=== PATIENT | female | born 1960 | race Caucasian/White ===

== ENCOUNTER 2017-02-06 00:12 | Day surgery (SDC) | payer BC ==
[~2017-02-06] VITALS: Ht 162.6 cm; Wt 70.8 kg
[~2017-02-06 00:12] MED LIST: AMLO10TA2 PO; CARV12.5 PO; ENAL10TA PO; ENAL1TAB5 PO; HYDR50TA PO
[2017-02-06] MEDS ORDERED: SUBLIMAZE ONE (06:45)
[2017-02-06] MEDS ORDERED: NS 250ML 250 ML IV ONE (06:46)
[2017-02-06] MEDS ORDERED: XYLOCAINE ONE (06:46)
[2017-02-06 10:50] VITALS: BP 151/91
[2017-02-06] MEDS ORDERED: BENADRYL PO ONE ×2 (11:04→11:05)
[2017-02-06 12:35] VITALS: BP 151/99
[2017-02-06 12:50] VITALS: BP 155/104
[2017-02-06 13:05] VITALS: BP 160/99
--- NOTE | 2017-02-06 16:38 | PRP ---
PROCEDURE PERFORMED: 1. Left upper extremity venogram. 2. Fluoroscopic guidance. 3. Insertion of 5 Senegalese Power PICC line, double lumen catheter in the left basilic vein. COMPLICATIONS: None. ESTIMATED BLOOD LOSS: Minimal, less than 5 mL. INDICATIONS: Ms. Garay is a 57-year-old lady with a history of endocarditis and venous problems related to prior history of drug abuse. She is determined to require multiple medical procedures, including CT scans with contrast to evaluate aortic disease in addition to stress test for coronary artery disease. There was extreme difficulty finding venous access to administer the intravenous contrast agents; therefore, a PICC line was indicated to provide IV access for temporary venous utilization. The patient signed appropriate consent. The procedure was explained in detail. DESCRIPTION OF PROCEDURE: She presented to the chemical laboratory scientist in a fasting condition on 02/06/2017. Right upper extremity venogram was performed through a 22 gauge radial vein access showing medium to small size left upper extremity venous system. It was patent. Multiple valves noted and signs of prior nonocclusive inflammation. The left basilic vein was engaged successfully from the first stick, advancing the guidewire followed by advancing 25 cm of the 5 Senegalese dual lumen Power PICC line. The Power PICC line had was capped with appropriate caps and there was positive flush back. It was attached to the skin using the dermal attachment kit associated with the Power PICC line kit. There was good hemostasis. No complications reported. IMPRESSION: 1. Patent left upper extremity veins with signs of prior inflammation and medium sized vessels with multiple valves. The basilic vein is otherwise patent. 2. Successful insertion of 25 cm of the 5 Senegalese dual lumen Power PICC line in the left basilic vein using fluoroscopic guidance. RECOMMENDATIONS: 1. Okay to start using the Power PICC line. 2. Please discontinue once all the medical diagnostic procedures have been accomplished. 3. Follow appropriate sterile technique to manage the Power PICC line. Tre Goldberg MD,[facility] [place] TD: 02/06/2017 14:47 [facility]
== END 2017-02-06 13:10 | disposition home or self-care (01) | DRG 303 ==
LOC: SURG 00:12
PROVIDERS: ATTEND Internal Medicine
DX: I25.118 Atherosclerotic heart disease of native coronary artery with other forms of angina pectoris (principal); I35.0 Nonrheumatic aortic (valve) stenosis; I11.0 Hypertensive heart disease with heart failure; I50.9 Heart failure, unspecified; I65.21 Occlusion and stenosis of right carotid artery; I39 Endocarditis and heart valve disorders in diseases classified elsewhere; I65.1 Occlusion and stenosis of basilar artery; I70.0 Atherosclerosis of aorta; B18.2 Chronic viral hepatitis C; M19.90 Unspecified osteoarthritis, unspecified site; E66.3 Overweight; R06.02 Shortness of breath; Z68.26 Body mass index [BMI] 26.0-26.9, adult; Z96.641 Presence of right artificial hip joint; Z98.890 Other specified postprocedural states; Z81.1 Family history of alcohol abuse and dependence; Z87.891 Personal history of nicotine dependence; Z79.899 Other long term (current) drug therapy; F19.10 Other psychoactive substance abuse, uncomplicated
CPT/HCPCS: 36005; 36569; J1642; J3010; J7050; Q0163; Q9967

== ENCOUNTER → 2017-02-08 | Outpatient (CLI) | payer BC ==
--- NOTE | 2017-02-08 19:26 | DIREP ---
PROCEDURE:CTA ABDOMEN PELVIS W RUNOFF COMPARISON:None. INDICATIONS:R06.02 SOB, R07.89 CHEST PAIN, AORTIC STENOSIS TECHNIQUE:After obtaining the patient's consent, CTA images were created with non-ionic intravenous contrast material. Multiplanar reconstructions were evaluated. Post processing was performed to create MIPs. FINDINGS: SUPRARENAL AORTA:Normal. CELIAC:Patent. SMA:Patent. RIGHT RENAL:Patent. Incidentally triplicated. LEFT RENAL:Patent. INFRARENAL AORTA:Normal. RIGHT COMMON ILIAC:Patent. LEFT COMMON ILIAC:Patent. RIGHT EXTERNAL ILIAC:Patent. LEFT EXTERNAL ILIAC:Patent. RIGHT LOWER EXTREMITY COMMON FEMORAL:Patent SUPERFICIAL FEMORAL:Patent POPLITEAL:Patent ANTERIOR TIBIAL:Patent TIBIOPERONEAL TRUNK:Patent POSTERIOR TIBIAL:Patent PERONEAL:Patent LEFT LOWER EXTREMITY COMMON FEMORAL:Patent SUPERFICIAL FEMORAL:Patent POPLITEAL:Patent ANTERIOR TIBIAL:Patent TIBIOPERONEAL TRUNK:Patent POSTERIOR TIBIAL:Patent PERONEAL:Patent LIMITED CHEST:Normal. Small hiatal hernia. LIVER:Normal. BILIARY:Normal. PANCREAS:Normal. SPLEEN:Normal. KIDNEYS:Normal. ADRENALS:Normal. RETROPERITONEUM:Small nonspecific periaortic lymph nodes. BOWEL/MESENTERY:Normal. ABDOMINAL WALL:Normal. PELVIS:Normal. BONES:Right hip prosthesis. CONCLUSION:Normal abdominal CTA with three-vessel lower extremity runoff. Dictated by: Drew Person M.D. on 02/08/2017 at 07:21 PM
== END | disposition home or self-care (01) ==
LOC: RAD 02-05 09:03
PROVIDERS: ATTEND Internal Medicine
DX: I35.0 Nonrheumatic aortic (valve) stenosis (principal); R07.89 Other chest pain; R06.02 Shortness of breath; Z68.28 Body mass index [BMI] 28.0-28.9, adult
CPT/HCPCS: 73706; 74174; J1642; Q9967

== ENCOUNTER → 2017-02-13 | Outpatient (CLI) | payer BC ==
[~2017-02-13] VITALS: Ht 162.6 cm; Wt 70.8 kg
[~2017-02-13] MED LIST changes: +LEXISCAN IV ONE
--- NOTE | 2017-02-13 10:52 | DIREP ---
PROCEDURE:CAROTID ULTRASOUND COMPARISON:None. INDICATIONS:R07.89 CHEST PAIN, 424.1 AORTIC STENOSIS TECHNIQUE:Sonographic evaluation of carotid and vertebral arteries was performed together with grayscale, color-flow, and spectral analysis. FINDINGS: RIGHT CCA PROX:66.2 cm/s MID:74.5 cm/s DIST:66.2 cm/s RIGHT ICA: PROX:67.0 cm/s MID:54.7 cm/s DIST:54.7 cm/s RIGHT ECA:97.9 cm/s RIGHT ICA/CC:1.01 RIGHT VERTEBRAL:50.4 cm/s; Antegrade IMAGES: There is no significant plaque. LEFT CCA: PROX:86.4 cm/s MID:68.0 cm/s DIST:65.5 cm/s LEFT ICA: PROX:53.3 cm/s MID:57.7 cm/s DIST:68.4 LEFT ECA:77.5 cm/s LEFT ICA/CCA:0.84 LEFT VERTEBRAL:32.2 cm/s; Antegrade IMAGES:There is no significant plaque. CONCLUSION:No evidence of hemodynamically significant stenoses. Diameter Stenosis (%)ICA Peak Systolic Velocity (cm/s)ICA/CCA RatioNormal<125<2.0<50<125<[id number] to near occlusion>230>4J Ultrasound Med 2005; 24:2031-3510 ac Dictated by: HECTOR Physician on 02/13/2017 at 10:26 AM
--- NOTE | 2017-02-15 15:21 | STRESS ---
INDICATION: A 57-year-old lady with shortness of breath, chest pain, has history of rheumatic heart disease, abnormal EKG, fatigue and weakness and decreased functional capacity. This lady was brought into the stress lab in a fasting condition. Signed appropriate consent. Baseline blood pressure was 120/80, heart rate 79. EKG showed sinus rhythm with right bundle-branch block. The patient was injected 0.4 mg regadenoson followed by the stress dose of technetium sestamibi, 1 minute post infusion blood pressure was 123/76, heart rate of 98; 5 minute post infusion blood pressure was 130/80, heart rate of 88. There was no ST-T change ischemia noted. The patient reported minimal shortness of breath. No arrhythmia seen. Myocardial infusion study was performed using technetium sestamibi for the same day rest stress protocol showing the following: Study quality was good. Prone position was available, which corrected for attenuation artifacts. LV cavity was normal. No visible transient ischemic dilatation. Myocardial perfusion imaging study using SPECT modality showed a small area of anteroseptal perfusion defect small in size and reversible was still present during prone position. No other perfusion defects noted. Gated function study showed inferoseptal hypokinesia, EF of 54%, stroke volume 19 mL with end diastolic volume 35 mL. IMPRESSION: Nondiagnostic stress portion of Lexiscan. No electrocardiogram change ischemia. No arrhythmia. Normal hemodynamic response. Myocardial perfusion imaging study was abnormal with small anteroseptal defect and inferoseptal hypokinesia. Overall the ejection fraction is preserved at 54%. This study qualifies for low to moderate risk for obstructive coronary artery disease. Clinical correlation is recommended especially with the patient's risk profile. Tre Goldberg MD,[facility]/[place] TD: 02/15/2017 10:36 [place]
== END | disposition home or self-care (01) ==
LOC: RAD 10:06
PROVIDERS: ATTEND Internal Medicine
DX: I35.0 Nonrheumatic aortic (valve) stenosis (principal); R06.02 Shortness of breath; Z68.28 Body mass index [BMI] 28.0-28.9, adult
CPT/HCPCS: 78452; 93017; 93307; 93880; A9500; J2785

== ENCOUNTER 2017-03-14 10:47 | Inpatient (IN) | payer BC ==
[~2017-03-14] VITALS: Ht 162.6 cm; Wt 79.5 kg
[~2017-03-14 10:47] MED LIST changes: -LEXISCAN IV ONE
--- NOTE | 2017-03-14 11:10 | NUR ---
Pt on unit Pt arrived on unit via wheelchair. Oriented pt to room. Provided pt with fluids and snacks. Call light within reach.
--- NOTE | 2017-03-14 11:45 | NUR ---
IV IV attempted by this nurse x2. No successful stick.
[2017-03-14 12:30] VITALS: BP 132/93
[2017-03-14] MEDS ORDERED: LASIX PO STA (12:44)
[2017-03-14] MEDS ORDERED: NS 1000ML 1,000 ML IV ONE (13:00)
--- NOTE | 2017-03-14 13:07 | NUR ---
Status Pt resting in bed. Equal rise and fall of the chest noted. Pt denies shortness of breath and pain. No s/s of distress noted.
--- NOTE | 2017-03-14 13:11 | PCM.HP ---
CRISTHIAN GREENBERG DISPATCHER RELAY 03/14/17 1311: History of Present Illness Reason for Visit: (1) Congestive heart failure with right heart failure ICD Code: I50.9 - Heart failure, unspecified SNOMED: [id number] Was this Problem Present on Ad: Yes-DX present @time ofIP Hx of Present Illness C: Patient seen by Dr. Bro this morning for shortness of breath and headache. She was seen in the emergency room in [place] last week, transferred to [facility] for drooping of right side of face, "black eye" on right, and left ankle swelling. Echo done at that time - see records. Today she presents, with continued edema to lower extremities, left greater than right , but 2+. She complains of being short of breath with "tightness", feeling " fat as a whale" and headache. H: Patient has remote history of being a drug user and smoker, but she had quit this behavior some years ago. She is a "hard stick" as far as IV access and has had at least two PICC lines in the past. She is employed at [employer], doing lifting and moving of product. A: Patient is alert, oriented, pleasant. She was brought to Room 311 by staff , where initial contact was made. Slight drooping to left face is noted (she reports that it is significantly less than previous), with very slight impairment of speech. Lungs have faint rhonchi but with good air entry to auscultation posterior and anterior mtz. Heart sounds are present with regular rhythm, 2/6 systolic murmur and ejection click. Peripheral pulses present. Extremities have symmetric very slight edema. BMI 30. Travel History EBOLA RISK:Travel to/contact w: No Is pt experiencing any Ebola s: No Review of Systems Respiratory: Shortness of breath, SOB with excertion Cardiovascular: Orthopnea Allergies: Coded Allergies: No Known Allergies (Unverified , 02/05/17) Scheduled Amlodipine Besylate (Amlodipine Besylate), 1 TAB PO DAILY, (Reported) Carvedilol 12.5MG (Coreg 12.MG), 1 TAB PO BID, (Reported) Enalapril/Hydrochlorothiazide (Enalapril-Hctz 10-25 Mg Tablet), 1 TAB PO DAILY, (Reported) Hydroxyzine Hcl (Hydroxyzine Hcl), 1 TAB PO TID, (Reported) VTE VTE Risk Total Score: 4 VTE Risk Score VTE Risk: Score 0-1 = Low Risk (Aggressive mobilization; early ambulation; no VTE prophylaxis required) Score 2: Moderate Risk (Intermittent/Pneumatic Compression Device OR Lovenox/Heparin/Coumadin) Score 3-4: High Risk (Intermittent/Pneumatic Compression Device AND Lovenox/Heparin/Coumadin) Score > or =5: Highest Risk (Intermittent/Pneumatic Compression Device AND Lovenox/Heparin/Coumadin) VTE VTE Present on Admission: No Currently receiving anticoagul: No VTE Risk Total Score: 4 Exam Vital Signs Vital Signs Date Time Temp Pulse Resp B/P (MAP) Pulse Ox O2 Delivery O2 Flow Rate FiO2 03/14/17 12:34 Room Air 03/14/17 12:30 98.8 99 20 132/93 (106) 97 Assessment/Plan Assessment/Plan Patient History: Diabetes mellitus MATERNAL GRANDMOTHER, FH: colon cancer G8 SISTER No known health problems 32 MOTHER G8 SISTER 19 CHILD 19 CHILD 19 CHILD Unknown 33 FATHER, , Age:50's - 60 No Family History of: Alzheimer's disease Asthma Cerebrovascular disorder Chronic obstructive pulmonary disease Congestive heart failure Diabetes insipidus Hypertension Parkinson's disease DOMINGO REYNOLDS MD 03/16/17 0942: Review of Systems Allergies: Coded Allergies: No Known Allergies (Unverified , 02/05/17) Scheduled Amlodipine Besylate (Amlodipine Besylate), 1 TAB PO DAILY, (Reported) Carvedilol 12.5MG (Coreg 12.MG), 1 TAB PO BID, (Reported) Enalapril/Hydrochlorothiazide (Enalapril-Hctz 10-25 Mg Tablet), 1 TAB PO DAILY, (Reported) Hydroxyzine Hcl (Hydroxyzine Hcl), 1 TAB PO TID, (Reported) Assessment/Plan Assessment/Plan Assessment/Plan -Acute decompensation of right heart failure - severe tricuspid regurgitation - history of endocarditis - recent TIA - abnormal stress test with active angina symptoms plan, Diuretic therapy, arrange for Accurately evaluate cardiac output and managed right heart failure. Coronary angiography is recommended for abnormal stress test and angina in the presence of risk factors Problems: Patient History: Diabetes mellitus MATERNAL GRANDMOTHER, FH: colon cancer G8 SISTER No known health problems 32 MOTHER G8 SISTER 19 CHILD 19 CHILD 19 CHILD Unknown 33 FATHER, , Age:50's - 60 No Family History of: Alzheimer's disease Asthma Cerebrovascular disorder Chronic obstructive pulmonary disease Congestive heart failure Diabetes insipidus Hypertension Parkinson's disease CRISTHIAN GREENBERG NP Mar 14, 2017 13:11 DOMINGO REYNOLDS MD Mar 16, 2017 09:42
--- NOTE | 2017-03-14 13:53 | DIREP ---
PROCEDURE:CHEST 2 VIEWS COMPARISON:[facility], CR, XRAY CHEST SINGLE VW, 03/06/2017, 03:30 PM. INDICATIONS:Shortness of breath FINDINGS: LUNGS/PLEURA:No significant pulmonary parenchymal abnormalities. No effusions. VASCULATURE:Normal. Unremarkable pulmonary vasculature. CARDIAC:Mild cardiomegaly. MEDIASTINUM:Normal. No visible mass or adenopathy. BONES:Normal. No fracture or visible bony lesion. OTHER:Negative. CONCLUSION:Mild cardiomegaly with no evidence of pulmonary edema, infiltrate, or pleural effusion. No significant change from the prior exam. Dictated by: Marty Way M.D. on 03/14/2017 at 01:51 PM
[2017-03-14 14:22] LABS: BASOPHIL % 0.9 % (0.0-0.2); EOSINOPHIL # 0.2 10^3/uL (0.0-0.2); EOSINOPHIL % 4.7 % (0.0-5.0); HEMOGLOBIN 14.4 g/dL (12.0-15.0); LYMPHOCYTES # 1.8 10^3/uL (1.0-4.8); LYMPHOCYTES % 39.2 % (24.0-44.0); MEAN CELL HGB 31.4 pg (26-34); MEAN CELL HGB CONCENTRATION 34.5 g/dL (33-37); MEAN CORP VOLUME 90.8 fL (78-100); MONOCYTES # 0.4 10^3/uL (0.3-0.8); MONOCYTES % 9.4 % (5.0-12.0); NEUTROPHILS % 45.6 % (41.0-85.0); RED CELL DISTRIBUTION WIDTH 13.2 % (11.5-14.5); WHITE BLOOD CELL 4.5 10^3/uL (4.5-11.0)
[2017-03-14 14:27] LABS: CARBON DIOXIDE 23.5 mmol/L (20.0-32)
--- NOTE | 2017-03-14 18:41 | NUR ---
report report received care assumed ,
[2017-03-14 19:20] VITALS: BP 144/88
[2017-03-15 00:11] VITALS: BP 136/87
--- NOTE | 2017-03-15 00:12 | NUR ---
npo fluids and snacks removed from bedside table, education completed from npo status, will continue to monitor
[2017-03-15 05:40] LABS: BASOPHIL # 0.1 10^3/uL (0.0-0.1); BASOPHIL % 1.4 % (0.0-0.2); EOSINOPHIL # 0.2 10^3/uL (0.0-0.2); EOSINOPHIL % 3.7 % (0.0-5.0); HEMOGLOBIN 14.6 g/dL (12.0-15.0); LYMPHOCYTES # 2.2 10^3/uL (1.0-4.8); LYMPHOCYTES % 44.5 % (24.0-44.0); MEAN CELL HGB 31.3 pg (26-34); MEAN CELL HGB CONCENTRATION 34.4 g/dL (33-37); MEAN CORP VOLUME 91.2 fL (78-100); MEAN PLATELET VOLUME 9.1 fL (7.8-11.0); MONOCYTES # 0.6 10^3/uL (0.3-0.8); MONOCYTES % 11.5 % (5.0-12.0); NEUTROPHIL # 1.9 10^3/uL (1.8-7.7); NEUTROPHILS % 38.9 % (41.0-85.0); RED CELL DISTRIBUTION WIDTH 13.4 % (11.5-14.5); WHITE BLOOD CELL 4.9 10^3/uL (4.5-11.0)
[2017-03-15 05:58] LABS: CALCIUM 9.3 mg/dL (8.4-10.5); CARBON DIOXIDE 21.2 mmol/L (20.0-32)
[2017-03-15] MEDS ORDERED: HEPARIN ONE (06:30)
[2017-03-15] MEDS ORDERED: VERSED ONE ×2 (06:31→11:38)
[2017-03-15] MEDS ORDERED: NITROGLYCERIN 25MG/D5W 250ML 250 ML IV ONE (06:31)
[2017-03-15] MEDS ORDERED: XYLOCAINE ONE (06:31)
[2017-03-15] MEDS ORDERED: SUBLIMAZE ONE ×2 (06:31→12:11)
[2017-03-15 07:17] VITALS: BP 133/89
--- NOTE | 2017-03-15 07:21 | NUR ---
report report given care relinquished
[2017-03-15 08:42] VITALS: BP 136/98
[2017-03-15] MEDS ORDERED: NS 1000ML 1,000 ML ONE (10:04)
--- NOTE | 2017-03-15 10:42 | NUR ---
DISCHARGE PLANNING: SS VISITED WITH PT REGARDING DISCHARGE PLANNING NEEDS. PT LIVES HOME ALONE AND IS VERY INDEPENDENT, AND WORKS DAILY. PT DOES NOT USE ANY DME, AND DENIED NEEDING ADDITIONAL RESOURCES AT THIS TIME. PT SAFETY HANDOUT ADDRESSED, NO QUESTIONS ASKED, UNDERSTANDING VERBALIZED. SS TO CONTINUE TO FOLLOW AND MONITOR DISCHARGE PLANNING NEEDS.
--- NOTE | 2017-03-15 11:25 | NUR ---
Off unit Patient transferred off unit via stretcher to mason tender restoration labor.
--- NOTE | 2017-03-15 12:49 | NUR ---
Arrival Patient arrived back on unit via stretcher. Special vitals initiated. Telemetry #12 applied. Report received from Brian Sanabria RN. Right femoral sheath in place to right groin. Site soft, no bleeding or swelling noted. No s/s of a hematoma. Offered patient fluids and snacks. Will continue to monitor. Call light within reach.
--- NOTE | 2017-03-15 14:16 | NUR ---
Bedpan Assisted patient on bedpan. No bleeding, swelling, or s/s of hematoma to groin noted.
--- NOTE | 2017-03-15 14:21 | NUR ---
Urine 300 cc of light corie urine noted
[2017-03-15 15:45] VITALS: BP 128/84
[2017-03-15] MEDS: TYLENOL PO PRN ×2 (16:20→16:28)
[2017-03-15] MEDS ORDERED: TYLENOL PO ONE (16:23)
--- NOTE | 2017-03-15 17:44 | NUR ---
Dr. Goldberg Notified Dr. Goldberg of patient's pain to right leg. New order received. No s/s of bleeding, swelling, heat or hematoma noted. Will continue to monitor. Educated patient and family on the importance of lying flat to prevent complications with sheath, patient and family verbalized understanding.
[2017-03-15] MEDS: NORCO 10-325 TABLET PO PRN (18:03)
--- NOTE | 2017-03-15 18:30 | NUR ---
report recieved report took over care
--- NOTE | 2017-03-15 18:44 | [facility] ---
DATE OF SERVICE: 03/15/2017 PROCEDURES PERFORMED: 1. Left heart catheterization via right common femoral artery. 2. Right heart catheterization via right common femoral vein. 3. Selective coronary angiography, left and right. 4. Left ventricular end diastolic pressure measurement. 5. Left ventriculography 6. Right femoral angiography. COMPLICATIONS: None. BLOOD LOSS: Around 20-25 mL, minimal. INDICATIONS: 1. Abnormal stress test performed on 02/13/2017 showing anteroseptal defect and inferobasal hypokinesia. 2. Signs and symptoms of clinical right heart failure as well as an echocardiographic finding of severely dilated RV and hypokinetic ventricle. 3. Severe tricuspid regurgitation. 4. Multiple risk factors for coronary artery disease. 5. History of prior tricuspid endocarditis treated conservatively. HISTORY OF PRESENT ILLNESS: The patient is a 57-year-old lady with history of previous IV drug abuse. She also has history of smoking and hypertension, has been complaining of chest pain, shortness of breath, edema and swelling. Clinical evidence of right heart failure as well as echocardiographic findings of right heart failure were apparent in this hospitalization. Therefore, the need for right heart catheterization to accurately calculate the cardiac output as well as a left heart catheterization to follow up on recently performed stress test to manage angina. The patient signed proper consent, was brought into the [facility] in a fasting condition for left and right heart catheterization and hemodynamic study. DESCRIPTION OF PROCEDURE: The right groin area was prepped and draped and sterilized, 1% lidocaine was used for local analgesia. Micropuncture technique was utilized to gain access into the right common femoral vein and artery. A 6-Lao sheath was inserted in each of those vascular structures without difficulty under fluoroscopic guidance. The [place]-Efrain catheter was then advanced to the right heart chambers and pulmonary artery wedge pressure saturations were obtained through blood samples and pressures were measured in addition to performing thermodilution cardiac output method in the pulmonary artery. The right femoral venous sheath was sutured to the skin and utilized for IV access as the patient has very difficult stick due to previously scarred veins. A 6-Lao JL4 and 6-Lao JR4 were the guide of choice utilized to engage left and right coronary arteries via the right common femoral artery access sheath and the pigtail catheter was then advanced over the guidewire into the LV cavity for LVEDP measurement and power injection LV gram in the JOHNSON projection. The 6-Lao arterial sheath was removed and 6-Lao Angio-Seal was deployed successfully at the right common femoral artery access site for hemostasis. The patient tolerated the procedure well and left the Demurrage Clerk in stable condition without complications. RIGHT HEART CATHETERIZATION FINDINGS: 1. Pulmonary capillary wedge pressure was around 5-8 mmHg. 2. Pulmonary artery pressure was 27/9, mean of 17 mmHg, normal. 3. RV pressure was 30/6 mmHg. 4. RA pressure was around 12-15 mmHg. 5. IVC pressure was 14 mmHg. 6. Pulmonary capillary wedge pressure saturation was 89%. 7. Pulmonary artery mean saturation was 65%. 8. RV pressure was 62%. 9. RA pressure was 62%. 10. Aortic saturation was 92% on room air. 11. Cardiac output calculated by thermodilution was 3.9 liters per minute, cardiac index was 4.17 liter per minute per meter square. 12. Cardiac output by Suzanne criteria was 2.4 liters per minute and a cardiac index 2.5 liters per minute per meter square. LEFT HEART CATHETERIZATION HEMODYNAMICS: 1. Showed an opening pressure of 161/97, mean of 124 mmHg. 2. LVEDP was around 10 mmHg. 3. LV systolic function showed an EF around 50-55% with apical hypokinesia. 4. +2 MR was noted. 5. A gradient of 3 mmHg across the aortic valve was noted. 6. Ascending aorta was normal in size without apparent disease. ANGIOGRAPHIC FINDINGS: 1. Left main is normal size vessel, free of disease, normal in diameter. 2. LAD was normal in size, free of disease. 3. Diagonal branches were small, tortuous vessels without significant disease. 4. Circumflex artery starts as a large nondominant vessel, tapers down quickly to a small nondominant vessel, no obstructive lesion noted. Large obtuse marginal branch was seen without obstructive disease. 5. The right coronary artery is a normal size, tortuous, dominant vessel, free of disease with multiple small acute marginal branches, terminates distally at small, tortuous, dominant PDA and PLV branches. IMPRESSION: 1. Normal pulmonary capillary wedge pressure. 2. Normal pulmonary artery pressure. 3. Normal RV pressure. 4. Cardiac output was depressed measuring an average of 3.25 liter per minute with an average cardiac index of 3.6 liter per minute per meter square. 5. Normal pulmonary capillary wedge pressure. 6. Preserved LV systolic function with EF around 50%. 7. No angiographic evidence of any obstructive coronary artery disease. 8. Normal dominant RCA. 9. Normal left main. 10. Normal LAD. 11. No iliofemoral disease on the right side. 12. The procedure was well tolerated. RECOMMENDATIONS: 1. Groin care. 2. Okay to utilize the 6-Lao sheath in the right common femoral vein for venous access. 3. Management of biventricular failure, especially RV failure. 4. Optimize medical management for primary prevention of coronary artery disease. 5. Consider management of severe tricuspid regurgitation with RV failure. Tre Goldberg MD DR: ALFONSO/vitaliy JOB# [id number]
[2017-03-15 19:10] VITALS: BP 142/105
--- NOTE | 2017-03-15 19:10 | NUR ---
into assess patient, patietn states no pain at this time, patients heart cath site checked no swelling or bleeding no ss of hematoma will cont to monitor
--- NOTE | 2017-03-15 20:15 | NUR ---
bedpan into assess patient onto bed heredia patient rolls well with little to no discomfort will cont to monitor
[2017-03-15] MEDS: COREG PO SCH (20:36)
[2017-03-15] MEDS: ATARAX PO SCH (21:00)
--- NOTE | 2017-03-15 22:50 | NUR ---
into assess heart cath site, no ss of bleeding, no hardness will cont to monitor
[2017-03-16] MEDS: NORCO 10-325 TABLET PO PRN ×2 (01:44→07:54)
[2017-03-16 03:20] VITALS: BP 101/70
--- NOTE | 2017-03-16 06:46 | NUR ---
reported off to oncoming shift relinquished care
[2017-03-16 08:02] VITALS: BP 121/82
[2017-03-16] MEDS ORDERED: PEPCID ONE (08:54)
[2017-03-16] MEDS: ATARAX PO SCH ×3 (09:00→21:35)
[2017-03-16] MEDS: COREG PO SCH ×2 (09:00→21:35)
[2017-03-16] MEDS: HYDROCHLOROTHIAZIDE PO SCH (09:01)
[2017-03-16] MEDS: NORVASC PO SCH (09:01)
[2017-03-16] MEDS: ZESTRIL PO SCH (09:01)
--- NOTE | 2017-03-16 09:03 | NUR ---
MADE ROUND ON PT REGARDING POST OP CARE OF HEART CATH. CATH SITE ASSESSED. VENOUS SHEATH STILL IN PLACE AT THIS TIME. NO SWELLING OR BLEEDING NOTED. PT STATES THAT SHE HAS SORENESS TO RIGHT LEG. PEDAL AND POPITEAL PULSES +2. PT DENIES ANY FURTHER NEEDS OR QUESTIONS AT THIS TIME.
--- NOTE | 2017-03-16 10:27 | PRM.DC ---
Discharge Summary Date of Arrival on Unit: Mar 14, 2017 Reason for Visit: Congestive heart failure and shortness of breath Additional Comments Patient had developed increasing edema to face, feet. PROCEDURES PERFORMED: 1. Left heart catheterization via right common femoral artery. 2. Right heart catheterization via right common femoral vein. 3. Selective coronary angiography, left and right. 4. Left ventricular end diastolic pressure measurement. 5. Left ventriculography 6. Right femoral angiography. INDICATIONS: 1. Abnormal stress test performed on 02/13/2017a. 2. Signs and symptoms of clinical right heart failure as well as an echocardiographic finding of severely dilated RV and hypokinetic ventricle. 3. Severe tricuspid regurgitation. 4. Multiple risk factors for coronary artery disease. 5. History of prior tricuspid endocarditis treated conservatively. HISTORY OF PRESENT ILLNESS: The patient is a 57-year-old lady with history of previous IV drug abuse. She also has history of smoking and hypertension, has been complaining of chest pain, shortness of breath, edema and swelling. Clinical evidence of right heart failure as well as echocardiographic findings of right heart failure were apparent in this hospitalization. Patient History: Diabetes mellitus MATERNAL GRANDMOTHER, FH: colon cancer G8 SISTER No known health problems 32 MOTHER G8 SISTER 19 CHILD 19 CHILD 19 CHILD Unknown 33 FATHER, , Age:50's - 60 No Family History of: Alzheimer's disease Asthma Cerebrovascular disorder Chronic obstructive pulmonary disease Congestive heart failure Diabetes insipidus Hypertension Parkinson's disease History Present Illness: (1) Congestive heart failure with right heart failure SEVERITY: MODERATE PERSISTENT COMPLICATION TYPE: W/ ACUTE EXACERBATION Status: Chronic ICD Code: I50.9 - Heart failure, unspecified SNOMED: [id number] General: Alert, Oriented X3 Lungs: Clear to auscultation Neuro: Normal speech, Normal tone Psych/Mental Status: Mental status NL Scheduled Amlodipine Besylate (Amlodipine Besylate), 1 TAB PO DAILY, (Reported) Carvedilol 12.5MG (Coreg 12.MG), 1 TAB PO BID, (Reported) Enalapril/Hydrochlorothiazide (Enalapril-Hctz 10-25 Mg Tablet), 1 TAB PO DAILY, (Reported) Hydroxyzine Hcl (Hydroxyzine Hcl), 1 TAB PO TID, (Reported) Sepsis Evaluation @ Discharge No sign or symptoms of sepsis at time of discharge. Course Blood Pressure Systolic: 121 Blood Pressure Diastolic: 82 Blood Pressure Mean: 95 Plan Discharge Disposition: Stable Plan FOLLOW UP IN OFFICE IN TWO WEEKS. WEIGH DAILY AND CALL IF GAIN OF OVER 5 POUNDS IN THREE DAYS, OR IF SHORTNESS OF BREATH WITH WEIGHT GAIN. CONTROL FLUID INTAKE - AIM FOR <2 LITER/DAY INTAKE. TAKE MEDICATIONS PRESCRIBED. CRISTHIAN GREENBERG NP Mar 16, 2017 10:27
[2017-03-16 11:45] VITALS: BP 106/74
--- NOTE | 2017-03-16 13:58 | NUR ---
Sheath removed Femoral sheath removed. Held manual pressure for 10 minutes. 4x4 gauze and tegaderm applied to site. Dressing C/D/I. Site soft, no s/s of hematoma. Educated patient on the importance to stay lying flat for 15 minutes, then we'd slowly start sitting up, patient verbalized understanding. Will continue to monitor. Call light within reach.
--- NOTE | 2017-03-16 14:23 | NUR ---
Report Report given to BECKA Wyatt. Relinquished care of patient
[2017-03-16 15:56] VITALS: BP 111/76
--- NOTE | 2017-03-16 18:33 | NUR ---
REPORT REPORT RECEIVED ASSUMED CARE OF PT
[2017-03-16 19:53] VITALS: BP 117/89
[2017-03-17 00:21] VITALS: BP 110/78
[2017-03-17 04:03] VITALS: BP 101/75
--- NOTE | 2017-03-17 07:20 | NUR ---
Status Patient resting with eyes closed in supine position. Respirations even and nonlabored. No s/s of distress noted. Will continue to monitor. Call light within reach.
[2017-03-17] MEDS: ATARAX PO SCH (09:00)
[2017-03-17] MEDS: NORVASC PO SCH (09:00)
[2017-03-17 09:26] VITALS: BP 109/70
[2017-03-17] MEDS: HYDROCHLOROTHIAZIDE PO SCH (09:29)
[2017-03-17] MEDS: ZESTRIL PO SCH (09:30)
[2017-03-17] MEDS: COREG PO SCH (09:30)
[2017-03-17 11:00] VITALS: BP 109/70
--- NOTE | 2017-03-17 11:00 | NUR ---
Discharge Discharge instructions given to patient. Educated patient on importance of follow up with Dr. Goldberg, patient verbalized understanding. Educated patient on new medications, patient verbalized understanding. Educated patient on reportable s/s related to heart cath site, patient verbalized understanding. Discontinued IV, catheter tip intact. No bleeding, swelling, redness, heat or pain noted. Covered with cotton ball and bandaid. Patient ambulated off unit with staff to private vehicle. No s/s of distress noted.
--- NOTE | 2017-03-23 01:01 | PRM.ACF1 ---
Admission Criteria Forms HEART FAILURE: COMMON COMPLICATIONS Clinical Indications for Inpatient Care (Place 'X' for any and all applicable criteria): Ongoing inpatient care may be indicated for heart failure with 1 or more of the following (1)(2)(3)(4)(5)(6)(7)(8): [ ]I. New-onset heart failure [ ]II. Acute cardiac ischemia causing or associated with failure [ ]III. Ongoing need for care for primary condition requiring frequent therapy adjustments because of changes in cardiac function (eg, drug dosage changes for drugs that are renally metabolized) [X]IV. Complications of heart failure, including 1 or more of the following: [ ]a) Hemodynamic instability [ ]b) Pericardial effusion [ ]c) Symptomatic pleural effusion [ ]d) Hypoxemia [ ]e) Tachypnea [X]f) Dyspnea [ ]g) Syncope [ ]h) Altered mental status [ ]i) Acute renal insufficiency that is severe (reduction of more than 50% in estimated glomerular filtration rate from baseline) or progressive reduction of more than 25% in estimated glomerular filtration rate from baseline, with creatinine continuing to rise) [ ]j) Debilitating anasarca (eg tissue breakdown with infection, inability to void due to edema) (E) [ ]k) Clinically significant metabolic abnormalities due to heart failure (eg, new-onset metabolic acidosis) Extended stay may be needed until ALL of the following are present (1)(3)(18)(41 )(55) [ ]a) Hemodynamic stability [ ]b) Stable and effective diuretic regimen established (or patient on stable dialysis regimen if in chronic renal failure) [ ]c) Volume status acceptable on oral medication [ ]d) Breathing comfortably at rest [ ]e) Saturation of arterial oxygen greater than 90% or at acceptable baseline [ ]f) Pulmonary edema absent or improved [ ]g) Peripheral or sacral edema absent or improved [ ]h) Renal function stable and manageable at a lower level of care [ ]i) Complications (eg, pleural effusion) resolved or manageable at a lower level of care [ ]g) Patient or caregiver has received written discharge instructions or educational material addressing activity level, diet, discharge medications, follow-up appointment, weight monitoring, and what to do if symptoms worsen.(25)(26) The original [facility] [employer] content created by [facility] [employer] has been revised. The portions of the content which have been revised are identified through the use of italic text, and [facility] has neither reviewed nor approved the modified material.All other unmodified content is copyright [facility]. Please see references footnoted in the original [facility] edition 2015 Is [facility]/Fe's added/comple: YES HERMAN GORDILLO CDS Mar 23, 2017 01:01
== END 2017-03-17 13:26 | disposition home or self-care (01) | DRG 287 ==
LOC: MS 10:47
PROVIDERS: ADMIT Internal Medicine; ATTEND Internal Medicine
PROC: 4A023N8 Measurement of Cardiac Sampling and Pressure, Bilateral, Percutaneous Approach (ICD-10-PCS; principal; 2017-03-15)
PROC: B2111ZZ Fluoroscopy of Multiple Coronary Arteries using Low Osmolar Contrast (ICD-10-PCS; 2017-03-15)
PROC: B2151ZZ Fluoroscopy of Left Heart using Low Osmolar Contrast (ICD-10-PCS; 2017-03-15)
PROC: B41F1ZZ Fluoroscopy of Right Lower Extremity Arteries using Low Osmolar Contrast (ICD-10-PCS; 2017-03-15)
DX: I11.0 Hypertensive heart disease with heart failure (principal); I07.1 Rheumatic tricuspid insufficiency; I20.9 Angina pectoris, unspecified; I50.9 Heart failure, unspecified; R94.39 Abnormal result of other cardiovascular function study; Z87.891 Personal history of nicotine dependence; Z86.73 Personal history of transient ischemic attack (TIA), and cerebral infarction without residual deficits; Z83.3 Family history of diabetes mellitus; Z80.0 Family history of malignant neoplasm of digestive organs
CPT/HCPCS: 36415; 71020; 80048; 80053; 82810; 82948; 85025; 93460; 99152; 99153; C1760; C1769; C1894; J1644; J2250; J3010; J3490; J7030; Q9967

== ENCOUNTER 2017-04-04 11:25 | Emergency (ER) | payer BC ==
[~2017-04-04] VITALS: Ht 162.6 cm; Wt 81.6 kg
--- NOTE | 2017-04-04 11:47 | ER.PDOC ---
General Chief Complaint: General Complaint Stated Complaint: RETAINING FLUID,SOB TRAVEL OUT OF US: No Time seen by MD: 11:46 Source: patient Exam Limitations: no limitations History of Present Illness Initial Comments Retaining fluid for past few days. Severity: moderate Associated Symptoms: shortness of breath Allergies: Coded Allergies: No Known Allergies (Unverified , 02/05/17) Home Meds Reported Medications Carvedilol 12.5MG (COREG 12.MG) 12.5 Mg Tablet, 1 TAB PO BID, #180 TAB 1 Refill 02/05/17 Hydroxyzine Hcl (HYDROXYZINE HCL) 50 Mg Tablet, 1 TAB PO TID, #90 TAB 2 Refills 02/05/17 Past Medical History Medical History: CVA/TIA/stroke, cardiac problems, congestive heart failure, hypertension Surgical History: , hip LMP (females 10-50): postmenopause Social History Smoking: quit greater than 1 year Alcohol Use: none Drug Use: Amphetamines Review of Systems Constitutional: no symptoms reported Respiratory: see HPI Cardiovascular: see HPI Gastrointestinal: no symptoms reported Genitourinary: no symptoms reported Musculoskeletal: no symptoms reported Skin: no symptoms reported All Other Systems: Reviewed and Negative Physical Exam General Appearance: No Apparent Distress, WD/WN Neck: Non-Tender, Full Range of Motion, Supple, Normal Inspection Respiratory: chest non-tender, lungs clear, normal breath sounds, no respiratory distress CVS: reg rate & rhythm, no murmur, no gallop, pulses nml, nml capillary refill Gastrointestinal: Normal Bowel Sounds, No Organomegaly, No Pulsatile Mass, Non Tender Extremities: Normal Range of Motion, Non-Tender, Normal Inspection, No Pedal Edema Neurologic/Psychiatric: doctor of dental medicine II-XII NML as Tested, No Motor/Sensory Deficits Results/Orders Results/Orders Laboratory Tests Test 04/04/17 12:00 White Blood Count 3.2 10^3/uL (4.5-11.0) Red Blood Count 4.26 10^6/uL (4.00-5.20) Hemoglobin 13.3 g/dL (12.0-15.0) Hematocrit 38.7 % (36.0-46.0) Mean Corpuscular Volume 90.8 fL (78-100) Mean Corpuscular Hemoglobin 31.2 pg (26-34) Mean Corpuscular Hemoglobin Concent 34.4 g/dL (33-37) Red Cell Distribution Width 13.6 % (11.5-14.5) Platelet Count 141 10^3/uL (150-400) Mean Platelet Volume 9.3 fL (7.8-11.0) Neutrophils (%) (Auto) 42.4 % (41.0-85.0) Lymphocytes (%) (Auto) 36.2 % (24.0-44.0) Monocytes (%) (Auto) 15.1 % (5.0-12.0) Neutrophils # (Auto) 1.4 10^3/uL (1.8-7.7) Lymphocytes # (Auto) 1.2 10^3/uL (1.0-4.8) Monocytes # (Auto) 0.5 10^3/uL (0.3-0.8) Absolute Immature Granulocyte (auto 0.01 10^3 u/L (0-2) Eosinophils % 3.8 % (0.0-5.0) Basophils % 2.2 % (0.0-0.2) Basophils # 0.1 10^3/uL (0.0-0.1) Eosinophil Count 0.1 10^3/uL (0.0-0.2) Prothrombin Time 11.5 SEC (9.8-11.9) Prothrombin Time INR (Non-Therap) 1.1 Activated Partial Thromboplast Time 26.6 SEC (24.67-30.72) Sodium Level 144 mmol/L (132-145) Potassium Level 3.6 mmol/L (3.6-5.2) Chloride Level 108.0 mmol/L (96-109) Carbon Dioxide Level 24.6 mmol/L (20.0-32) Anion Gap 15.0 Blood Urea Nitrogen 25 mg/dL (7-18) Creatinine 0.94 mg/dL (0.59-1.40) Estimated GFR () 74.3 (>/=60) BUN/Creatinine Ratio 26.0 Glucose Level 115 mg/dL (70-110) Calcium Level 8.8 mg/dL (8.4-10.5) Total Bilirubin 0.8 mg/dL (0.2-1.0) Aspartate Amino Transf (AST/SGOT) 70 U/L (0-35) Alanine Aminotransferase (ALT/SGPT) 69 U/L (12-78) Alkaline Phosphatase 145 U/L (50-136) Total Creatine Kinase 64 U/L (26-192) Creatine Kinase MB 0.7 ng/mL (0.5-3.6) Troponin I < 0.02 ng/mL (0.00-0.05) Pro-B-Type Natriuretic Peptide 618 pg/mL (0-125) Total Protein 7.6 g/dL (6.4-8.2) Albumin 3.4 g/dL (3.4-5.0) Globulin 4.2 Percent Immature Gran (Cell Imm) 0.30 % (0.00-0.50) Progress Progress Called Dr. Goldberg without response EKG/XRAY/CT/US EKG: NSR XRAY: chest (Normal) Departure Time of Disposition: 12:58 Disposition: 01 HOME, SELF-CARE Impression: Primary Impression: CHF (congestive heart failure) Qualified Codes: I50.9 - Heart failure, unspecified Condition: Stable Referrals: DOMINGO GOLDBERG MD (PCP) PRIMARY CARE PROVIDER Additional Instructions: Continue home medications F/U with your Dr. Goldberg in 2-3 days. Call for appointment. JAMES MOLINA MD Apr 04, 2017 11:47
[2017-04-04 12:06] LABS: BASOPHIL # 0.1 10^3/uL (0.0-0.1); BASOPHIL % 2.2 % (0.0-0.2); EOSINOPHIL # 0.1 10^3/uL (0.0-0.2); EOSINOPHIL % 3.8 % (0.0-5.0); HEMOGLOBIN 13.3 g/dL (12.0-15.0); LYMPHOCYTES # 1.2 10^3/uL (1.0-4.8); LYMPHOCYTES % 36.2 % (24.0-44.0); MEAN CELL HGB 31.2 pg (26-34); MEAN CELL HGB CONCENTRATION 34.4 g/dL (33-37); MEAN CORP VOLUME 90.8 fL (78-100); MEAN PLATELET VOLUME 9.3 fL (7.8-11.0); MONOCYTES # 0.5 10^3/uL (0.3-0.8); MONOCYTES % 15.1 % (5.0-12.0); NEUTROPHIL # 1.4 10^3/uL (1.8-7.7); NEUTROPHILS % 42.4 % (41.0-85.0); RED CELL DISTRIBUTION WIDTH 13.6 % (11.5-14.5); WHITE BLOOD CELL 3.2 10^3/uL (4.5-11.0)
--- NOTE | 2017-04-04 12:12 | DIREP ---
PROCEDURE:CHEST 1 VIEW COMPARISON:None. INDICATIONS:Chest pain. FINDINGS: LUNGS/PLEURA:No significant pulmonary parenchymal abnormalities. No effusions. VASCULATURE:Normal. Unremarkable pulmonary vasculature. CARDIAC:Normal. No cardiac silhouette abnormality or cardiomegaly. MEDIASTINUM:Normal. No visible mass or adenopathy. BONES:Normal. No fracture or visible bony lesion. OTHER:Negative. CONCLUSION:Normal chest. Dictated by: Jarrett Rose M.D. on 04/04/2017 at 12:09 PM
[2017-04-04 12:34] LABS: ALANINE AMINOTRANSFERASE 69 U/L (12-78); ALKALINE PHOSPHATASE 145 U/L (50-136); ASPARTATE AMINO TRANSFERASE 70 U/L (0-35); CALCIUM 8.8 mg/dL (8.4-10.5); CARBON DIOXIDE 24.6 mmol/L (20.0-32); GLUCOSE 115 mg/dL (70-110)
[2017-04-04] MEDS ORDERED: LASIX PO STA (13:01)
[2017-04-04] MEDS ORDERED: LASIX ONE (13:20)
[2017-04-04 13:34] VITALS: BP 148/82
== END 2017-04-04 13:28 | disposition home or self-care (01) ==
LOC: ER 11:25
DX: I11.0 Hypertensive heart disease with heart failure (principal); I50.9 Heart failure, unspecified; R06.02 Shortness of breath; F15.10 Other stimulant abuse, uncomplicated; Z86.73 Personal history of transient ischemic attack (TIA), and cerebral infarction without residual deficits; Z87.891 Personal history of nicotine dependence; Z79.899 Other long term (current) drug therapy
CPT/HCPCS: 36415; 71010; 80053; 82550; 82553; 83880; 84484; 85025; 85610; 93005; 99285

== ENCOUNTER → 2017-08-03 | Outpatient (CLI) | payer BC ==
--- NOTE | 2017-08-05 13:21 | DIREP ---
PROCEDURE:NM BONE SCAN 3 PHASE WHOLE BODY COMPARISON:[facility], CT, CT-ABDOMEN /PELVIS W/O CONTRAST, 01/20/2012, 07:11 AM. INDICATIONS:M25.511 CHRONIC PAIN POST REPLACEMENT TECHNIQUE:After obtaining the patient's consent, Technetium 99m MDP was injected intravenously. Dynamic flow and immediate blood pool images of the pelvis were obtained, along with whole body delayed static images. PHARMACEUTICAL:Technetium 99m MDP, 30.8 mCi FINDINGS: FLOW PHASE:Normal. BLOOD POOL PHASE:Normal. DELAYED IMAGES:Photopenia in the vicinity of the right femoral head and neck, due to hip prosthesis. Mildly increased activity in the vicinity of the medial trochanter of the right femur and at the tip of a femoral prosthesis. OTHER:Negative. CONCLUSION:There is mildly increased activity at the tip of the femoral component of a right hip prosthesis and in the vicinity of the lesser trochanter of the right femur. I suspect these findings are normal stress-related changes. However, correlation with plain film radiography is recommended to further evaluate. Dictated by: Nadia Palomares III, MD on 08/05/2017 at 01:10 PM
== END | disposition home or self-care (01) ==
LOC: NM 08:40
PROVIDERS: ATTEND Orthopaedic Surgery
DX: M25.511 Pain in right shoulder (principal); Z96.611 Presence of right artificial shoulder joint
CPT/HCPCS: 78315; A9503

== ENCOUNTER → 2017-08-07 | Outpatient (CLI) | payer BC ==
[2017-08-07 16:01] LABS: MEAN CELL HGB 30.9 pg (26-34); MEAN CELL HGB CONCENTRATION 32.9 g/dL (33-37); MEAN PLATELET VOLUME 9.3 fL (7.8-11.0); RED CELL DISTRIBUTION WIDTH 13.4 % (11.5-14.5); WHITE BLOOD CELL 4.8 10^3/uL (4.5-11.0)
== END | disposition home or self-care (01) ==
LOC: LAB 15:27
PROVIDERS: ATTEND Orthopaedic Surgery
DX: M25.551 Pain in right hip (principal)
CPT/HCPCS: 36415; 85027; 85651; 86140